=== PATIENT | female | born 1990 | race Caucasian/White ===

== ENCOUNTER 2019-01-22 19:17 | Emergency (ER) | payer BC ==
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
[2019-01-22] MEDS ORDERED: NS 1,000 ML IV ONE (19:40)
[2019-01-22 20:01] LABS: PLATELET COUNT 238 10^3/uL (150-400)
[2019-01-23] MEDS ORDERED: ONDANSETRON DISINTEGRATING 4 MG TAB PO ONE (03:25)
[2019-01-23 07:35] VITALS: BP 132/81
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
--- NOTE | 2019-01-23 10:11 | ASMTTCLDSP ---
TLC Discharge Disposition Disposition: Answers: Discharge If Answers: Yes DISCHARGED: Patient/family given suicide hotline info & SAMHSA brochure? Disposition Notes: Notes: Pt and family agreed to f/u with an intensive outpt treatment program with a focus on substance abuse. Pt and family were provided with referrals Discharge Concerns/Recommendations: Notes: In consultation with [facility] ED physician, Lady Hahn MD, it was concurred that pt does not appear to meet 27-65 criteria requiring psychiatric hospitalization as pt does not appear to be an imminent risk of harm to self/others/gravely disabled due to a mental illness condition. Dr Hahn ED Physician vacated hold at 08:19. Discussion was held with pt and her parents to discuss discharge recommendations. Pt was not interested in inpt. treatment at this time so intensive outpt treatment with a focus on substance abuse was recommended. Referrals were provided for 2 local IOP programs which included [facility] and [facility]. Pt expressed a desire to f/u with also with her individual therapist. Was patient given the Answers: Not applicable Inpatient Behavioral Health Prohibited Belongings List while in the ED? Psychiatrist vacating M1 ED physician Dr. Lady Hahn Hold: Date and time M1 hold 01/23/2019 08:19 AM vacated (time format is hh:mm): Type of Hold: Answers: /72-hour Hold Hold initiated by: Answers: Police Date Signed: 01/23/2019 10:10 AM Electronically Signed By:Lainey Calix
== END 2019-01-23 08:26 | disposition home or self-care (01) ==
DX: R45.851 Suicidal ideations (principal); F10.920 Alcohol use, unspecified with intoxication, uncomplicated; E86.9 Volume depletion, unspecified
CPT/HCPCS: 80305; G0480